=== PATIENT | male | born 1940 | race Two or more races ===

== ENCOUNTER 2022-07-23 15:55 | Inpatient (IN) | payer OTHER ==
[~2022-07-23] VITALS: Ht 167.6 cm; Wt 72.6 kg
--- NOTE | 2022-07-23 16:27 | NUR ---
SE RECIBE PTE ALERTA Y ORIENTADO X3 EN AMBULANCIA PTEREFIERE VENIR POR DOLOR DE ABDOMEN Y NAUSEAS. SE PALPA ABDOMEN DEPRESIBLE. SE MIDEN S/V A PTE Y SE COLOCA EN JEANA.
--- NOTE | 2022-07-23 16:28 | NUR ---
SE EDUCA A PTE SOBRE [place] MEDICO LEONEL REFIERE ENTENDER. SE JEFF MUESTRAS DE LABORATORIO UTILIZANDO MEDDIAS ASEPTICAS. SE COLOCA H/L Y IV FLUIDS. SE GAIL CONTRASTE PO A PTE Y SE NOTIFICA RX Y CT PENDIENTES A REALIZAR.
--- NOTE | 2022-07-23 19:00 | NUR ---
INSERTA SONDA NASOGASTRICA EN FOSA NASAL DERECHA BAJO MEDIDAS ASEPTICAS, EL CUAL SE ENCUENTRA PATENTE. AL MOMENTO DE LA INSERCION NO SE OBSERVA EGRESO GASTRICO. SE CONECTA A SUCCION INTERMITENTE BAJA. SE ORIENTA A PTE SOBRE [place] MEDICO, REFIERE COMPRENDER.
== END 2022-07-28 13:07 | disposition home or self-care (01) | DRG 389 ==
LOC: ER 15:55 → ICU-2 21:06 → MEDJ 07-25 18:11
PROVIDERS: ADMIT Internal Medicine; ATTEND Internal Medicine
PROC: BW21YZZ Computerized Tomography (CT Scan) of Abdomen and Pelvis using Other Contrast (ICD-10-PCS; 2022-07-23)
PROC: 4A12X4Z Monitoring of Cardiac Electrical Activity, External Approach (ICD-10-PCS; principal; 2022-07-25)
PROC: 02HV33Z Insertion of Infusion Device into Superior Vena Cava, Percutaneous Approach (ICD-10-PCS; 2022-07-25)
PROC: BW20YZZ Computerized Tomography (CT Scan) of Abdomen using Other Contrast (ICD-10-PCS; 2022-07-27)
DX: K56.600 Partial intestinal obstruction, unspecified as to cause (principal); I69.351 Hemiplegia and hemiparesis following cerebral infarction affecting right dominant side; N17.9 Acute kidney failure, unspecified; I12.9 Hypertensive chronic kidney disease with stage 1 through stage 4 chronic kidney disease, or unspecified chronic kidney disease; E11.22 Type 2 diabetes mellitus with diabetic chronic kidney disease; N18.9 Chronic kidney disease, unspecified; Z79.4 Long term (current) use of insulin